=== PATIENT | female | born 1945 | race Caucasian/White ===

== ENCOUNTER 2023-07-30 08:25 | Day surgery (SDC) | payer MEDICARE, OTHER, SELFPAY ==
[2023-07-24 14:01] VITALS: BMI 35.2
[2023-07-30 10:47] VITALS: BMI 32.6
[2023-07-30 10:57] VITALS: BP 143/57; PULSE 69; RESP 16; TEMP 36.7; O2SAT 97
[2023-07-30] MEDS: Lactated Ringers 1,000 ML 100 ML IVCONT (11:08)
--- NOTE | 2023-07-30 12:20 | P.CONAN_ITS ---
Documented by User: Bridget Blanco NP 07/29/23 11:57 HPI - Anesthesia Eval Consult details Narrative: 77yo F for Left Inferior Eye Muscle Recession/Resection Medically optmized PMFSH Past Medical History Medical History (Updated 07/29/23 @ 12:01 by Evonne Kaiser RN) Vitamin B deficiency Osteoarthritis Depression GERD (gastroesophageal reflux disease) Sleep apnea HTN (hypertension) Hyperlipidemia Celiac disease Surgical History Surgical History (Updated 07/30/23 @ 10:47 by Evonne Kaiser RN) Hx of tonsillectomy Hx of reduction mammoplasty History of bilateral knee replacement Hx of total hysterectomy with removal of both tubes and ovaries History of sleeve gastrectomy Hx of cardiac catheterization History of bladder suspension procedure Social History Social History Patient Tobacco Use Status: Never used Tobacco Use of substances other than those prescribed or required for medical reasons: No Are you DNR?: No Advance Directives: No Advance Directives Information Provided: Yes Meds Allergies Allergy/AdvReac Type Severity Reaction Status Date / Time gluten Allergy Intermediate dx of Verified 07/24/23 14:01 celiac disease NSAIDS (Non-Steroidal AdvReac Mild Unknown Verified 07/30/23 10:44 Anti-Inflamma Home Medications ?Medication ?Instructions ?Recorded ?Confirmed ?Last Taken ?Type Lactobacillus acidophilus 10 10,000 mmu cells PO DAILY 07/24/23 07/24/23 Unknown History billion cell capsule (Probiotic) amlodipine 5 mg tablet 5 mg PO DAILY 07/24/23 07/24/23 Unknown History ascorbic acid (vitamin C) 500 mg 500 mg PO DAILY 07/24/23 07/24/23 Unknown History tablet (Vitamin C) aspirin 81 mg tablet,delayed 81 mg PO DAILY 07/24/23 07/24/23 Unknown History release atorvastatin 20 mg tablet 20 mg PO BEDTIME 07/24/23 07/24/23 Unknown History biotin 5 mg tablet 5 mg PO DAILY 07/24/23 07/24/23 Unknown History calcium carbonate 500 mg-vitamin 1 tab PO BID 07/24/23 07/24/23 Unknown History D3 10 mcg (400 unit) tablet (Calcium 500 + D) celecoxib 200 mg capsule (Celebrex) 200 mg PO DAILY 07/24/23 07/24/23 Unknown History disulfiram 250 mg tablet 250 mg PO DAILY 07/24/23 07/24/23 Unknown History fluoxetine 40 mg capsule 40 mg PO DAILY 07/24/23 07/24/23 Unknown History glucosamine sulfate 500 mg tablet 500 mg PO DAILY 07/24/23 07/24/23 Unknown History (Glucosamine) hydrochlorothiazide 12.5 mg tablet 12.5 mg PO DAILY 07/24/23 07/24/23 Unknown History losartan 100 mg tablet 100 mg PO DAILY 07/24/23 07/24/23 Unknown History metoprolol succinate 25 mg 25 mg PO DAILY 07/24/23 07/24/23 Unknown History tablet,extended release 24 hr omeprazole 20 mg tablet,delayed 20 mg PO DAILY 07/24/23 07/24/23 Unknown History release trazodone 50 mg tablet 50 mg PO BEDTIME 07/24/23 07/24/23 Unknown History Exam Height,Weight and Vital Signs: Height 5 ft Weight 81.647 kg Assessment and Plan Assessment Anesthesia Assessment: Chart Reviewed Documented by User: Heather Arnold DO 07/30/23 12:49 HPI - Anesthesia Eval Consult details Narrative: 77yo F for Left Inferior Eye Muscle Recession/Resection Sensitivity to NSAIDs due to history of celiac disease. REPLACED BY [facility] Past Medical History Medical History (Updated 07/29/23 @ 12:01 by Evonne Kaiser RN) Vitamin B deficiency Osteoarthritis Depression GERD (gastroesophageal reflux disease) Sleep apnea HTN (hypertension) Hyperlipidemia Celiac disease Family History Family history of problems with anesthesia: No Surgical History Surgical History (Updated 07/30/23 @ 10:47 by Evonne Kaiser RN) Hx of tonsillectomy Hx of reduction mammoplasty History of bilateral knee replacement Hx of total hysterectomy with removal of both tubes and ovaries History of sleeve gastrectomy Hx of cardiac catheterization History of bladder suspension procedure History of Problems with Anesthesia: No Social History Social History Patient Tobacco Use Status: Never used Tobacco Use of substances other than those prescribed or required for medical reasons: No Are you DNR?: No Advance Directives: No Advance Directives Information Provided: Yes Meds Allergies Allergy/AdvReac Type Severity Reaction Status Date / Time gluten Allergy Intermediate dx of Verified 07/24/23 14:01 celiac disease NSAIDS (Non-Steroidal AdvReac Mild Unknown Verified 07/30/23 10:44 Anti-Inflamma Home Medications ?Medication ?Instructions ?Recorded ?Confirmed ?Last Taken ?Type Lactobacillus acidophilus 10 10,000 mmu cells PO DAILY 07/24/23 07/24/23 Unknown History billion cell capsule (Probiotic) amlodipine 5 mg tablet 5 mg PO DAILY 07/24/23 07/24/23 Unknown History ascorbic acid (vitamin C) 500 mg 500 mg PO DAILY 07/24/23 07/24/23 Unknown History tablet (Vitamin C) aspirin 81 mg tablet,delayed 81 mg PO DAILY 07/24/23 07/24/23 Unknown History release atorvastatin 20 mg tablet 20 mg PO BEDTIME 07/24/23 07/24/23 Unknown History biotin 5 mg tablet 5 mg PO DAILY 07/24/23 07/24/23 Unknown History calcium carbonate 500 mg-vitamin 1 tab PO BID 07/24/23 07/24/23 Unknown History D3 10 mcg (400 unit) tablet (Calcium 500 + D) celecoxib 200 mg capsule (Celebrex) 200 mg PO DAILY 07/24/23 07/24/23 Unknown History disulfiram 250 mg tablet 250 mg PO DAILY 07/24/23 07/24/23 Unknown History fluoxetine 40 mg capsule 40 mg PO DAILY 07/24/23 07/24/23 Unknown History glucosamine sulfate 500 mg tablet 500 mg PO DAILY 07/24/23 07/24/23 Unknown History (Glucosamine) hydrochlorothiazide 12.5 mg tablet 12.5 mg PO DAILY 07/24/23 07/24/23 Unknown History losartan 100 mg tablet 100 mg PO DAILY 07/24/23 07/24/23 Unknown History metoprolol succinate 25 mg 25 mg PO DAILY 07/24/23 07/24/23 Unknown History tablet,extended release 24 hr omeprazole 20 mg tablet,delayed 20 mg PO DAILY 07/24/23 07/24/23 Unknown History release trazodone 50 mg tablet 50 mg PO BEDTIME 07/24/23 07/24/23 Unknown History Exam Exam Date and Time: July 30, 2023 1220 Height,Weight and Vital Signs: Height 5 ft Weight 81.647 kg Vital Signs Temperature 98.1 F 07/30/23 10:57 Pulse Rate 69 07/30/23 10:57 Respiratory Rate 16 07/30/23 10:57 Blood Pressure 143/57 H 07/30/23 10:57 Pulse Oximetry 97 07/30/23 10:57 Oxygen Delivery Method Room Air 07/30/23 10:57 Temperature 98.1 F 07/30/23 10:57 Pulse Rate 69 07/30/23 10:57 Respiratory Rate 16 07/30/23 10:57 Blood Pressure 143/57 H 07/30/23 10:57 Pulse Oximetry 97 07/30/23 10:57 Oxygen Delivery Method Room Air 07/30/23 10:57 Height 5 ft 3 in Weight 83.518 kg Airway Mallampati Class: III (small mouth opening) TM Dist: <=3cm Neck ROM: Full Loose/Missing/Broken Teeth: Yes (multiple missing and broken teeth) Heart: S1S2 Lungs: CTAB Assessment and Plan Assessment Anesthesia Assessment: Anesthesia Plan Discussed and Chart Reviewed Final Anesthetic Review Family History of Problems with Anesthesia: No History of Problems with Anesthesia: No NPO: Yes ASA Class: II Final Preanesthetic Review: No Changes in Pt Med Stat, Meds/Allgs Chart Reviewed, Consent Obtained/Reviewed and Anes Risks/Benef Reviewed Patient Risk: Low Procedure Risk: Low Anesthetic Plan Anesthetic Plan: GA and Agree w/ Assess. and Plan Disposition: Standard PACU
[2023-07-30 13:09] VITALS: BP 129/52; PULSE 74; RESP 16; TEMP 36.2; O2SAT 100
[2023-07-30 13:14] VITALS: BP 125/39; PULSE 70; RESP 16; O2SAT 97
[2023-07-30 13:19] VITALS: BP 124/53; PULSE 67; RESP 16; O2SAT 96
[2023-07-30 13:24] VITALS: BP 113/37; PULSE 65; RESP 16; O2SAT 96
--- NOTE | 2023-07-30 13:27 | HO.OPHTHAL ---
Ophthalmology Operative Note Date of Service: 07/30/23 Narrative: Diagnosis right superior oblique palsy. Procedure recession of left inferior rectus [address] Jara. Anesthesia general. Complications none. The patient was brought to the operative room placed under general anesthesia. The left eye was prepped and draped in the usual sterile ophthalmic fashion. A lid speculum was placed in the eye and a peritomy was created around the inferior rectus muscle. The muscle was hooked and secured with a double-armed Vicryl suture. It was disinserted from the globe and reattached to a position 2 mm behind the original insertion. Conjunctiva was closed with interrupted Vicryl sutures. The patient was then awoken from general anesthesia and discharged postoperative recovery in good condition.
[2023-07-30 13:39] VITALS: BP 140/55; PULSE 70; RESP 18; TEMP 36.4; O2SAT 97
--- NOTE | 2023-07-31 06:45 | PC.NURSE ---
24hr update documented on paper chart
== END 2023-07-30 14:37 | disposition home or self-care (01) ==
PROVIDERS: PCP Internal Medicine; Visit Provider Ophthalmology
PROC: (CPT 67314; principal; 2023-07-30 11:50)
DX: H49.12 Fourth [trochlear] nerve palsy, left eye (principal); I10 Essential (primary) hypertension; G47.33 Obstructive sleep apnea (adult) (pediatric); F32.4 Major depressive disorder, single episode, in partial remission; M19.90 Unspecified osteoarthritis, unspecified site; Z79.82 Long term (current) use of aspirin; Z99.89 Dependence on other enabling machines and devices; Z79.899 Other long term (current) drug therapy
CPT/HCPCS: 67314; J0131; J1100; J1596; J1885; J2405; J2704; J3010